=== PATIENT | male | born 1935 | race Caucasian/White ===

== ENCOUNTER 2020-06-17 17:42 | Inpatient (IN) | payer OTHER ==
[~2020-06-17] VITALS: Ht 167.6 cm; Wt 84.4 kg
[2020-06-17] MEDS ORDERED: PEPCID AC20 MG (18:25)
[2020-06-17] MEDS ORDERED: PROBIOTIC FORM1 EAC1 (18:25)
[2020-06-17] MEDS ORDERED: ALTACE5 MG (18:26)
[2020-06-17] MEDS ORDERED: SIMVASTATIN5 MG (18:26)
[2020-06-17] MEDS ORDERED: BENZONATATE150 MG (18:26)
[2020-06-17] MEDS ORDERED: B-COMPLEX WITH1 EAC2 (18:26)
[2020-06-17] MEDS ORDERED: ARTHRITIS PAIN650 M2 (18:27)
[2020-06-17] MEDS ORDERED: PRAMIPEXOLE E2.25 MG (18:28)
[2020-06-17] MEDS ORDERED: DERMACINRX5000 UNIT (18:29)
[2020-06-17] MEDS ORDERED: PREVACID30 MG (18:29)
[2020-06-17] MEDS ORDERED: DIALYVITE 800-1 EACH (18:30)
[2020-06-17] MEDS ORDERED: DIVALPROEX SODI25 GM (18:30)
[2020-06-17] MEDS ORDERED: ATIVAN2 M1 (18:30)
--- NOTE | 2020-06-17 18:31 | NUR ---
SE RECIBE PTE EN AMBULANCIA REFERIDO DEL HOGAR EN EL CUAL ESTA POR EL MEDICO DE CABECERA,POR DISFAGIA,LO REFIEREN AL WALKER EL INTERNISTA,EL TE TIENE ALZHEIMER REFIEREN PARAMEDICO QUE EL PTE ASPIRO EN EL MOMENTO EN EL CUAL LO ESTABAN ALIMENTANDO SE ENTREVISTA AL FAMILIAR NO SABE A QUE HORA FUE ,EL REFIERE QUE LO LLAMARON DEL HOGAR PARA NOTIFICARSELO.
--- NOTE | 2020-06-17 19:06 | NUR ---
SE ORIENTA PTE Y FAMILIAR SOBRE TX MEDICO EL CUAL REFIERE ENTENDER.SE LE EXTRAEN MUESTRAS BAJO MEDIDAS ASEPTICAS,SE CANALIZA Y SE COLOCA FLUIDOS DE MANTENIMIENTO BAJANDO SIN DIFICULTAD.SE CATETERIZA BAJO MEDIDAS ASEPTICAS PARA IAM DE UA.
--- NOTE | 2020-06-17 19:07 | NUR ---
SE NOTIFICAN ABG A MR RODRIGUEZ,SE ROXANA LU @ 3LTS.
[2020-06-25] MEDS ORDERED: AMLODIPINE BESYL5 MG PO (13:43)
== END 2020-06-25 17:56 | disposition home or self-care (01) | DRG 392 ==
LOC: ER 17:42 → MEDJ 20:44 → SEC-K 20:44 → MEDJ 06-18 10:55
PROVIDERS: ADMIT Internal Medicine; ATTEND Internal Medicine
PROC: BW28ZZZ Computerized Tomography (CT Scan) of Head (ICD-10-PCS; principal; 2020-06-17)
PROC: 4A033R1 Measurement of Arterial Saturation, Peripheral, Percutaneous Approach (ICD-10-PCS; 2020-06-17)
PROC: 3E0F7GC Introduction of Other Therapeutic Substance into Respiratory Tract, Via Natural or Artificial Opening (ICD-10-PCS; 2020-06-17)
PROC: BW24ZZZ Computerized Tomography (CT Scan) of Chest and Abdomen (ICD-10-PCS; 2020-06-18)
PROC: 0DH63UZ Insertion of Feeding Device into Stomach, Percutaneous Approach (ICD-10-PCS; 2020-06-21)
PROC: 0CJS8ZZ Inspection of Larynx, Via Natural or Artificial Opening Endoscopic (ICD-10-PCS; 2020-06-23)
PROC: 3E0G76Z Introduction of Nutritional Substance into Upper GI, Via Natural or Artificial Opening (ICD-10-PCS; 2020-06-23)
DX: K22.2 Esophageal obstruction (principal); R65.10 Systemic inflammatory response syndrome (SIRS) of non-infectious origin without acute organ dysfunction; T17.800A Unspecified foreign body in other parts of respiratory tract causing asphyxiation, initial encounter; R13.14 Dysphagia, pharyngoesophageal phase; R13.19 Other dysphagia; R05 Cough; F02.80 Dementia in other diseases classified elsewhere, unspecified severity, without behavioral disturbance, psychotic disturbance, mood disturbance, and anxiety; G30.8 Other Alzheimer's disease; I10 Essential (primary) hypertension; D72.829 Elevated white blood cell count, unspecified; Z20.828 Contact with and (suspected) exposure to other viral communicable diseases